=== PATIENT | female | born 1965 | race Caucasian/White ===

== ENCOUNTER 2020-02-14 08:52 | Emergency (ER) | payer OTHER ==
[~2020-02-14] VITALS: Ht 167.6 cm; Wt 70.0 kg
[~2020-02-14 08:52] MED LIST: ATIVAN0.5 MG PO; GABAPENTIN300 MG PO; HYDROCO/APAP1 TA9 PO; METHOCARBAM750 MG PO; NORCO1 TA1 PO; TRAZODONE50 MG PO
[2020-02-14] MEDS ORDERED: BACTRIM DS1 TAB PO (09:38)
[2020-02-14] MEDS ORDERED: CEPHALEXIN500 M1 PO (09:38)
[2020-02-14 09:53] VITALS: BP 180/86
== END 2020-02-14 09:53 | disposition home or self-care (01) ==
LOC: ED 08:52
DX: L03.211 Cellulitis of face (principal); E78.5 Hyperlipidemia, unspecified

== ENCOUNTER 2020-02-17 11:50 | Observation (INO) | payer OTHER ==
[~2020-02-17] VITALS: Ht 167.6 cm; Wt 69.9 kg
[~2020-02-17 11:50] MED LIST changes: +BACTRIM DS1 TAB PO; +CEPHALEXIN500 M1 PO
--- NOTE | 2020-02-17 12:14 | NUR ---
PT TO ROOM WITH STEADY GAIT
--- NOTE | 2020-02-17 12:30 | NUR ---
IV ACCESS OBTAINED WITH BLOOD SPECIMENS RECEIVED. PT TOLERATED WELL. PLAN OF CARE DISCUSSED. VERBALIZED UNDERSTANDIGN. DENIES ANY NEEDS.
[2020-02-17 12:49] LABS: HEMOGLOBIN 11.2 g/dl (12.0-16.0); IMMATURE GRANULOCYTES 0.1 % (0.0-5.0); MEAN CELL VOLUME 93.1 fL CALC (80.0-100.0); MEAN CORPUSCULAR HGB 29.8 pG CALC (26.0-32.0); NEUT# 3.9 thou/uL (2.00-7.15); RED BLOOD COUNT 3.76 mill/uL (4.20-5.60); RED CELL DISTRI WIDTH 12.9 % (11.5-15.5)
[2020-02-17 13:05] LABS: ALKALINE PHOSPHATASE 64 u/l (38-126); ANION GAP 15 (6-22 (CALC)); BILIRUBIN, TOTAL 0.4 mg/dL (0.0-1.4); BUN 12 mg/dL (7-17); BUN/CREATININE RATIO 16 (12-20 (CALC)); CARBON DIOXIDE 22 mmol/l (22-30); CHLORIDE 105 mmol/l (95-108); CREATININE 0.7 mg/dL (0.5-1.0); GFR > 60 ML/MIN (>=60 (CALC)); GFR FOR AFR.AMER. > 60 ML/MIN (>=60 (CALC)); POTASSIUM 3.4 mmol/l (3.5-5.1); SGOT/AST 21 u/l (14-36); SODIUM 138 mmol/l (137-146); TOTAL PROTEIN 7.2 g/dL (6.3-8.2)
--- NOTE | 2020-02-17 13:25 | NUR ---
IV ROCEPHIN COMPLETED AT THIS TIME. IV SITE APPEARS HEALTHY WITH NO REDNESS, SWELLING OR WARMTH. PT RESTING ON STRETCHER IN NO APPARENT DISTRESS. ADVISED OF CONT WAIT TIME FOR RESULTS. VERBALIZED UNDERSTANDING. DENIES ANY NEEDS. CALL LIGTH WITHIN REACH.
--- NOTE | 2020-02-17 14:20 | NUR ---
PT RETURNS FROM RADIOLOGY. ADVISED OF CONT WAIT TIME FOR RESULTS. VERBALIZED UNDERSTANDIGN. DENIES ANY NEEDS AT THIS TIME. CALL LIGHT WITHIN REACH.
[2020-02-17] MEDS ORDERED: PROGESTERONE200 MG PO (15:12)
[2020-02-17] MEDS ORDERED: ATORVASTATIN CA20 MG PO (15:13)
[2020-02-17] MEDS ORDERED: DICLOFENAC75 MG PO (15:13)
[2020-02-17] MEDS ORDERED: ATOMOXETINE PO (15:13)
[2020-02-17] MEDS ORDERED: CYMBALTA60 MG PO (15:14)
--- NOTE | 2020-02-17 15:30 | NUR ---
PT RESTING ON STRETCHER IN NO APPARENT DISTRESS. RESP EVEN AND UNLABORED. SKIN WARM AND DRY. ADVISED PT OF CONT WAIT TIME FOR RESULTS. VERALIZED UNDERSTANDING. DENIES ANY NEEDS.
[2020-02-17] MEDS ORDERED: BACTRIM DS1 TAB PO (15:42)
--- NOTE | 2020-02-17 16:01 | NUR ---
SPOKE WITH DR CARR IN REGARDS TO PT CURRENTLY TAKING BACTRIM AND CEPHALEXIN RX FRIDAY WHEN INITIALLY SEEN IN ED. PLAN FOR ADMIT FOR ABX THERAPY. PT INFORMED OF PLAN OF CARE AND IN AGREEANCE FOR ADMISSION. DISCUSSED WAIT TIME. VERALIZED UNDERSTANDING.
[2020-02-17] MEDS ORDERED: HYDROCO/APAP1 T10 PO (16:51)
--- NOTE | 2020-02-17 17:00 | NUR ---
PT RESTING ON STRETCHER EATING DINNER (BROUGHT IN BY ). ADVISED OF CONT WAIT TIME FOR ADMISSION AND AWAITING BED. VERBALIZED UNDERSTANDING. DENIES ANY NEEDS AT THIS TIME.
--- NOTE | 2020-02-17 17:14 | NUR ---
REPORT GIVEN TO ANTIONETTE CHAMPION.
--- NOTE | 2020-02-17 17:20 | NUR ---
Admission Note Report Given to: ANTIONETTE CHAMPION Transported by: X Wheelchair Stretcher Transported with: X Nurse Transporter X Patent IV O2 Judicial Clerk Location: ICU X [facility] PT TRANSPORTED TO [facility] RM # [id number] VIA WC IN STABLE CONDITION.
[2020-02-17 17:38] VITALS: BP 160/81
--- NOTE | 2020-02-17 17:45 | NUR ---
PT ARRIVED TO UNIT AT 1719 VIA WHEELCHAIR WITH ER STAFF; ALERT AND ORIENTED. AMBULATES TO BED WITH STEADY GAIT. C/O SORENESS TO RIGHT CHEEK THAT IS TOLERABLE; PT REPORTS BLURRED VISION TO RIGHT EYE. RESPIRATIONS EVEN AND UNLABORED ON ROOM AIR. DENIES NAUSEA, SOB, OR DIFFICULTY SWALLOWING. PT TAKING PHONE CALLS UPON ARRIVAL AND GETTING UPSET AND RAISING VOICE TO CALLER ABOUT FAMILY ISSUES. WHEN OFF OF PHONE PT IS PLEASANT AND COOPERATIVE. BESIDES RED SWOLLEN ABCESS TO RIGHT CHEEK HER ASSESSMENT IS NEGATIVE. HAS MEDICAL MARIJUANA AND TAKES LORTAB FOR CHRONIC BACK PAIN; DENIES ANY BACK PAIN AT THIS TIME. ORIENTED TO ROOM AND CALL LIGHT SYSTEM. PLAN OF CARE DISCUSSED. PT ENCOURAGED TO VERBALIZE UNDERSTANDING. SAFETY MEASURES IN PLACE. CALL LIGHT WITHIN REACH.
--- NOTE | 2020-02-17 18:26 | NUR ---
VANCO INFUSING; IV SITE APPEARS HEALTHY AND FLUSHES.
[2020-02-17 19:00] VITALS: BP 136/76
--- NOTE | 2020-02-17 20:00 | NUR ---
PT TALKING ON THE PHONE; A/O X4; ASSESSMENT COMPLETED; PT DOES NOT VOICE ANY COMPLAINTS OR CONCERNS; PT STATES CAME IN ED ON 02/14/20 FOR SWELLING AND REDNESS TO RT SIDE OF FACE, PT SENT HOME ON ANTIBIOTICS; PT STATES SWELLING AND REDNESS BECAME WORSE, WITH SOME MODERATE DISCOMFORT; IV ANTIBIOTICS INFUSING IN #20 LH, NO REDNESS OR EDEMA NOTED; ENCOURAGE USE OF CALL LIGHT IF ANY ASSISTANCE IS NEEDED; CALL LUCIA WITHIN REACH; WILL CONTINUE TO MONITOR.
--- NOTE | 2020-02-17 22:45 | NUR ---
PT TALKING ON THE PHONE; NO COMPLAINTS OR CONCERNS VOICED; CALL LUCIA WITHIN REACH; WILL CONTINUE TO MONITOR.
--- NOTE | 2020-02-18 02:41 | NUR ---
PT RESTING WITH EYES CLOSED; NO S/SX OF DISTRESS NOTED; CALL LUCIA WITHIN REACH; WILL CONTINUE TO MONITOR.
[2020-02-18 04:00] VITALS: BP 128/65
[2020-02-18 05:26] LABS: HEMATOCRIT 37.5 % (37.0-47.0); HEMOGLOBIN 11.5 g/dl (12.0-16.0); MEAN CELL VOLUME 95.4 fL CALC (80.0-100.0); MEAN CORPUSCULAR HGB 29.3 pG CALC (26.0-32.0); MEAN CORPUSCULAR HGB CONC 30.7 g/dL CAL (32.0-36.0); RED BLOOD COUNT 3.93 mill/uL (4.20-5.60)
[2020-02-18 05:45] LABS: ANION GAP 11 (6-22 (CALC)); BUN 12 mg/dL (7-17); BUN/CREATININE RATIO 15 (12-20 (CALC)); CARBON DIOXIDE 26 mmol/l (22-30); CHLORIDE 106 mmol/l (95-108); CREATININE 0.8 mg/dL (0.5-1.0); GFR > 60 ML/MIN (>=60 (CALC)); GFR FOR AFR.AMER. > 60 ML/MIN (>=60 (CALC)); MAGNESIUM 2.2 mg/dL (1.6-2.3); POTASSIUM 3.7 mmol/l (3.5-5.1); SODIUM 139 mmol/l (137-146)
--- NOTE | 2020-02-18 07:30 | NUR ---
REPORT RECEIVED FROM WENDY ROGERS.
[2020-02-18 08:09] VITALS: BP 119/59
--- NOTE | 2020-02-18 08:10 | NUR ---
PT RESTING IN SEMI FOWLERS POSITION,A&O X3;VS OBTAINED AND ASSESSMENT COMPLETED;PT DENIES ANY CURRENT PAIN OR DISCOMFORTS,PAIN SCALE AND REPORTING EDUCATED;RESPIRATIONS EVEN AND UNLABORED ON RA,CLEAR LUNG SOUNDS;ABDOMEN SOFT ON PALPATION AND ACTIVE IN ALL 4 QUADRANTS;STRONG PEDAL PULSES;CELLULITIS NOTED TO RIGHT SIDE OF FACE, RED AND WARM TO TOUCH;#20G TO LEFT HAND INFUSING ABX WITH EASE PER ORDER;PT DENIES ANY ADDITIONAL NEEDS AT THIS TIME AND IS ENCOURAGED TO CALL FOR ASSISTANCE IF NEEDED;FALL PRECAUTIONS IN PLACE WITH BED IN THE LOWEST POSITION AND CALL LIGHT IN REACH;WILL CONTINUE TO MONITOR
--- NOTE | 2020-02-18 08:31 | NUR ---
AT BEDSIDE DISCUSSING POC WITH PT.
--- NOTE | 2020-02-18 09:06 | NUR ---
S: STANISLAW BARROSO is a 54 F who presents with facial cellulitis. She has a history of hyperlipidemia. All medications in patient's chart were reviewed. O: VS: BP 119/59 mmHg, P 80 BPM, RR 18 Breaths/min,T 97.5 F W 69.85kg, HT 66 inches, Scr= 0.8 mg/dL,CrCl= 89.6 ml/min A: Blood culture is pending. P: Patient is on Rocephin 1 gm IV Q24H. Vancomycin ordered for pharmacy to dose. Start Vancomycin 1g IV Q12H. Vancomycin trough is drawn before the 4th dose on 02/19/2020 at 530. Vancomycin goal trough is between <10-15 mcg/ml>. Pharmacy will follow and or advise on antibiotics use as needed.
--- NOTE | 2020-02-18 11:35 | NUR ---
PT RESTING IN SEMI FOWLERS POSITION;RESPIRATIONS EVEN AND UNLABORED ON RA;PT DENIES ANY CURRENT PAIN OR DISCOMFORTS;IV SITE REMAINS PATENT;ASSESSMENT REMAINS UNCHANGED AT THIS TIME;ICE PROVIDED PER REQUEST;PT ENCOURAGED TO CALL FOR ASSISTANCE IF NEEDED;FALL PRECAUTIONS IN PLACE WITH BED IN THE LOWEST POSITION AND CALL LIGHT IN REACH;WILL CONTINUE TO MONITOR
--- NOTE | 2020-02-18 13:30 | NUR ---
PT REPORTS RIGHT CHEEK PAIN RATING 8/10 ON THE PAIN SCALE AND REQUESTS PAIN MEDICATION,PT MEDICATED WITH PRN LORTAB 7.5MG PO AT THIS TIME;WILL CONTINUE TO MONITOR FOR EFFECTIVENESS
[2020-02-18 15:00] VITALS: BP 136/72
--- NOTE | 2020-02-18 15:50 | NUR ---
PT RESTING IN SEMI FOWLERS POSITION WITH SON AT BEDSIDE;RESPIRATIONS EVEN AND UNLABORED ON RA;PT DENIES ANY CURRENT PAIN BUT DOES REPORT NAUSEA,PT MEDICATED WITH PRN ZOFRAN 4MG IVP PER ORDER;IV SITE PATENT;PT DENIES ANY ADDITIONAL NEEDS AT THIS TIME AND IS ENCOURAGED TO CALL FOR ASSISTANCE IF NEEDED;FALL PRECAUTIONS IN PLACE WITH CALL LIGHT IN REACH;WILL CONTINUE TO MONITOR
[2020-02-18 19:15] VITALS: BP 139/74
--- NOTE | 2020-02-18 20:15 | NUR ---
RECIEVED REPORT FROM WENDY PARSON. PT RESTING IN SEMI FOWLERS POSITION WITH SON AT BEDSIDE UPON ENTERING ROOM. INTRODUCED SELF TO PT AND DISCUSSED POC. PT IS A/O X3. ASSESSMENT AND VITALS COMPLETED. RESPIRATIONSN ARE EVEN AND UNLABORED WITH NO SIGNS OF DISTRESS NOTED. LUNG SOUNDS ARE CLEAR. HEART RHYTHM IS NORMAL. BOWEL SOUNDS ARE ACTIVE IN ALL QUADRANTS, LAST REPORTED BM 02/17/2020. RADIAL AND PEDAL PULSES ARE STRONG. #20G IN LH RUNNING WITH IV ANTIBIOTICS, SITE APPEARS HEALTHY AND PATENT. PT COMPLAINS OF 8/10 BACK PAIN. LORTAB TO BE ADMINISTERED. PT PRESENTS WITH EDEMA TO RIGHT EYE. SITE IS REDDENED AND WARM TO TOUCH. PT INFORMED THAT NO VISITORS WAS TO STAY OVER NIGHT AND SON WOULD HAVE TO GO HOME. PT VERBAILZED UNDERSTANDING. PT DENIES ANY ADDITIONAL NEEDS AT THIS TIME. ALL SAFTEY PRECAUTIONS ARE IN PLACE WITH CALL LIGHT IN REACH. WILL CONTINUE TO MONITOR.
--- NOTE | 2020-02-19 | NUR ---
PT SLEEPING IN SEMI FOWLERS POSITION UPON ENTERING ROOM.RESPIRATIONS ARE EVEN AND UNLABORED WITH NO SIGNS OF DISTRESS NOTED. NO SIGNS OF ANY PAIN AT THIS TIME. ALL SAFETY PRECAUTIONS ARE IN PLACE WITH CALL LIGHT IN REACH. WILL CONTINUE TO MONITOR
--- NOTE | 2020-02-19 04:02 | NUR ---
PT SLEEPING IN LOW FOWLERS POSITION UPON ENTERING ROOM. RESPIRATIONS ARE EVEN AND UNLABORED WTH NO SIGNS OF DISTRESS NOTED. NO SIGNS OF ANY DISCOMFORTS AT THIS TIME. ALL SAFETY PRECAUTIONS ARE IN PLACE WITH CALL LIGHT IN REACH. WILL CONTINUE TO MONITOR
[2020-02-19 04:10] VITALS: BP 122/67
[2020-02-19 05:36] LABS: HEMATOCRIT 39.2 % (37.0-47.0); HEMOGLOBIN 12.2 g/dl (12.0-16.0); MEAN CELL VOLUME 95.6 fL CALC (80.0-100.0); MEAN CORPUSCULAR HGB 29.8 pG CALC (26.0-32.0); MEAN CORPUSCULAR HGB CONC 31.1 g/dL CAL (32.0-36.0); RED BLOOD COUNT 4.1 mill/uL (4.20-5.60); RED CELL DISTRI WIDTH 12.7 % (11.5-15.5)
[2020-02-19 05:50] LABS: ANION GAP 11 (6-22 (CALC)); BUN 13 mg/dL (7-17); BUN/CREATININE RATIO 18 (12-20 (CALC)); CARBON DIOXIDE 25 mmol/l (22-30); CHLORIDE 108 mmol/l (95-108); CREATININE 0.7 mg/dL (0.5-1.0); GFR > 60 ML/MIN (>=60 (CALC)); GFR FOR AFR.AMER. > 60 ML/MIN (>=60 (CALC)); POTASSIUM 3.9 mmol/l (3.5-5.1); SODIUM 140 mmol/l (137-146)
[2020-02-19 07:32] VITALS: BP 129/72
--- NOTE | 2020-02-19 07:32 | NUR ---
PATIENT LAYING IN BED AWAKE AND ALERT AND ORIENTED. DENIES ANY NEEDS AT THIS TIME WHEN ASKED ABOUT PAIN STATED IT WAS A 5 OFFERED WARM COMPRESS AT THIS TIME PATIENT STATED " I WOULD LIKE TO WAIT". ALL SAFETY MEASURES ARE IN PLACE CALL LIGHT NEAR SIDERAILS UP X2.
--- NOTE | 2020-02-19 08:10 | NUR ---
IV SITE FOUND INFILTRATED, SITE REMOVED WITH CATHETER INTACT;NEW #22G STARTED TO RIGHT HAND ON 2ND ATTEMPT BY THIS WRITTER,PT TOLERATED WELL. PT REPORTS RIGHT CHEEK PAIN RATING 7/10 ON THE PAIN SCALE AND REQUESTED PRN PAIN MEDICATION,PT MEDICATED WITH LORTAB 7.5MG PO AT THIS TIME;ENCOURAGED TO CALL FOR ASSISTANCE IF NEEDED;CALL LIGHT IN REACH;WILL CONTINUE TO MONITOR
--- NOTE | 2020-02-19 10:09 | NUR ---
AT BEDSIDE DISCUSSING POC.
[2020-02-19] MEDS ORDERED: BACTRIM DS1 TAB PO ×2 (11:47→13:29)
--- NOTE | 2020-02-19 12:05 | NUR ---
PATIENT IN BED WATCHING TV FAMILY MEMEBER AT BEDSIDE. DENIES ANY NEEDS AT THIS TIME. PATIENT STATED HER PAIN LEVEL IS A 3 CURRENTLY. SAFETY MEASURES IN PLACE CALL LIGHT WITHIN REACH SIDERAILS UP X2
--- NOTE | 2020-02-19 13:12 | NUR ---
S: STANISLAW BARROSO is a 54 F who presents with facial cellulitis. All medications in patient's chart were reviewed. O: VS: BP 129/72 mmhg, P 88 bpm, RR 16 breaths/min, T 97.3 F W 69.853 kg, HT 66in, Scr 0.7 mg.dl, CrCl 87 ml/min A: Blood culture is pending Vanco trough 02/18 @ 0530 = 7 mcg/ml P: Patient is on ceftriaxone 1g iv q24h. Vancomycin ordered for pharmacy to dose. Change vancomycin to 1g IV q8h. Vancomycin trough is drawn before the 4th dose on 118/ @ 0530. Vancomycin goal trough is between 10-15 mcg/ml. Pharmacy will follow and or advise on antibiotics use as needed.
--- NOTE | 2020-02-19 13:49 | NUR ---
PATIENT D/C AT THIS TIME. PATIENT VERBALIZES UNDERSTANDING OF D/C INSTRUCTIONS. NO OTHER NEEDS AT THIS TIME.
--- NOTE | 2020-02-19 13:56 | NUR ---
PATIENT D/C AND WHEELED DOWN STAIRS VIA WHEELCHAIR WITH FAMILY SIDE.
== END 2020-02-19 13:56 | disposition home or self-care (01) ==
LOC: ED 11:50 → ED-I 15:53 → ED 16:19 → MS2 16:20
PROVIDERS: Emergency Medicine; Nurse Practitioner; ADMIT Internal Medicine; ATTEND Internal Medicine
DX: L03.211 Cellulitis of face (principal); L02.01 Cutaneous abscess of face; E78.5 Hyperlipidemia, unspecified; F32.9 Major depressive disorder, single episode, unspecified; F41.9 Anxiety disorder, unspecified; Z20.828 Contact with and (suspected) exposure to other viral communicable diseases
CPT/HCPCS: G0378; J1650; Q9967

== ENCOUNTER 2020-05-27 11:32 | Emergency (ER) | payer OTHER ==
[~2020-05-27] VITALS: Ht 167.6 cm; Wt 77.0 kg
[~2020-05-27 11:32] MED LIST changes: +ATOMOXETINE PO; +ATORVASTATIN CA20 MG PO; +CYMBALTA60 MG PO; +DICLOFENAC75 MG PO; +HYDROCO/APAP1 T10 PO; +PROGESTERONE200 MG PO
[2020-05-27] MEDS ORDERED: NORCO1 TA1 PO (12:10)
[2020-05-27] MEDS ORDERED: CYMBALTA20 MG PO (12:10)
[2020-05-27] MEDS ORDERED: LYRICA25 MG PO (12:11)
[2020-05-27] MEDS ORDERED: NORCO1 TA2 PO (12:30)
[2020-05-27] MEDS ORDERED: PREGABALIN100 MG PO (12:31)
[2020-05-27] MEDS ORDERED: DULOXETINE HCL60 MG PO (12:31)
[2020-05-27] MEDS ORDERED: DICLOFENAC SODI75 M1 PO (12:32)
[2020-05-27] MEDS ORDERED: LIPITOR20 M1 PO (13:13)
[2020-05-27] MEDS ORDERED: ATOMOXETINE40 MG PO (13:13)
[2020-05-27 13:40] VITALS: BP 143/74
== END 2020-05-27 13:40 | disposition home or self-care (01) ==
LOC: ED 11:32
DX: S93.601A Unspecified sprain of right foot, initial encounter (principal); E78.5 Hyperlipidemia, unspecified; X58.XXXA Exposure to other specified factors, initial encounter

== ENCOUNTER 2020-09-10 13:28 | Emergency (ER) | payer OTHER ==
[~2020-09-10] VITALS: Ht 167.6 cm; Wt 80.0 kg
[~2020-09-10 13:28] MED LIST changes: +ATOMOXETINE40 MG PO; +CYMBALTA20 MG PO; +DICLOFENAC SODI75 M1 PO; +DULOXETINE HCL60 MG PO; +LIPITOR20 M1 PO; +LYRICA25 MG PO; +NORCO1 TA2 PO; +PREGABALIN100 MG PO
[2020-09-10 14:16] VITALS: BP 120/70
== END 2020-09-10 14:17 | disposition home or self-care (01) ==
LOC: ED 13:28
DX: R59.0 Localized enlarged lymph nodes (principal); E78.5 Hyperlipidemia, unspecified